=== PATIENT | female | born 2000 | race Caucasian/White ===

== ENCOUNTER 2019-04-13 11:34 | Emergency (ER) | payer SELFPAY ==
[~2019-04-13] VITALS: Ht 167.6 cm; Wt 61.7 kg
[2019-04-13 11:38] VITALS: BP 110/71
--- NOTE | 2019-04-13 11:49 | NUR ---
PATIENT AMBULATED TO BED 4.
--- NOTE | 2019-04-13 12:02 | NUR ---
18F BIB [employer] WITH C/O VAGINAL BLEEDING, INTERMITTENT CRAMPY LEFT LOWER ABDOMINAL PAIN X YESTERDAY. LMP 02/25/19. L0. ULTRASOUND AT [facility] X YESTERDAY AND PT HAD US : PREG 4 WEEKS. BLEEDING ALSO PRESENT YESTERDAY WHILE AT [facility] BUT WAS LIGHT. PT STATES IMAGING ALSO SHOWED STOOL. PT IS PASSING GAS, LBM YESTERDAY NORMAL CONSISTENCY. DENIES FEVER, N/V. MILD TENDERNESS TO PALPATION OF LLQ. NORMOACTIVE BS. LUNGS CTAB. RRR. NAD. MED HX: ASTHMA, ANEMIA
--- NOTE | 2019-04-13 12:37 | NUR ---
lab work walked over by Lyndsey LONGORIA
[2019-04-13 12:45] LABS: BASOPHILS % (AUTO) 0.5 % (0.0-2.0); EOSINOPHILS # (AUTO) 0.2 K/uL (0-0.4); EOSINOPHILS % (AUTO) 2.8 % (0.0-4.0); HEMATOCRIT 37.4 % (36-48); HEMOGLOBIN 12.2 g/dL (12.0-16.0); LYMPHOCYTES # (AUTO) 2.1 K/uL (2.5-16.5); MEAN CORPUSCULAR HEMOGLOBIN 29 pg (27-31); MEAN CORPUSCULAR HGB CONC 33 g/dL (33-37); MEAN CORPUSCULAR VOLUME 88.8 fL (80-94); MONOCYTES # (AUTO) 0.6 K/uL (0.8-1.0); MONOCYTES % (AUTO) 9.8 % (1.7-9.3); NEUTROPHILS # (AUTO) 3.1 K/uL (1.8-7.7); NEUTROPHILS % (AUTO) 51.9 % (42.2-75.2); PLATELET COUNT (AUTO) 208 K/uL (140-450); RED BLOOD CELL COUNT(AUTO) 4.22 MIL/uL (4.20-5.40); RED CELL DISTRIBUTION WIDTH 13.4 % (11.6-13.7)
[2019-04-13 13:00] LABS: APPEARANCE,URINE CLOUDY (CLEAR); BILIRUBIN,URINE NEGATIVE (NEGATIVE); BLOOD, URINE 3+ (NEGATIVE); COLOR,URINE YELLOW (YELLOW); LEUKOCYTE ESTERASE ,URINE NEGATIVE (NEGATIVE); NITRITE, URINE NEGATIVE (NEGATIVE); PH,URINE 7.5 (5.0-9.0); UGLUCOSE NEGATIVE (NEGATIVE)
[2019-04-13 13:11] LABS: RBC,URINE >100 /HPF (0-5); WBC,URINE 0-5 /HPF (0-5)
--- NOTE | 2019-04-13 13:31 | NUR ---
DR RUEDA AT BEDSIDE EVALUATING PT.
--- NOTE | 2019-04-13 14:05 | NUR ---
ADMINISTERED RHOGAM IM AT LEFT GLUTEUS KASSIE. LOT [id number] EXP 10/15/2020 Addendum: 04/13/19 at 1433 by MEGHNA RHOPHYLAC PATIENT COPY GIVEN TO PATIENT.
--- NOTE | 2019-04-13 14:25 | NUR ---
Patient discharged with v/s stable. Written and verbal after care instructions given and explained. Patient verbalized understanding. Ambulatory with steady gait. All questions addressed prior to discharge. Advised to follow up with PMD.
[2019-04-13 14:32] VITALS: BP 116/57
--- NOTE | 2019-04-13 14:47 | NUR ---
PATIENT CAME BACK TO GIVE US CASE #[id number] FROM [employer]. PT CONSENTS TO RELEASE HEALTH INFORMATION TO [employer] IF THEY CALL.
--- NOTE | 2019-04-13 16:30 | NUR ---
[facility] CALLED, DISCUSSED PATIENT'S CASE/CONDITION WITH [facility].
== END 2019-04-13 14:25 | disposition home or self-care (01) ==
LOC: MED 11:34
DX: O03.9 Complete or unspecified spontaneous abortion without complication (principal); J45.909 Unspecified asthma, uncomplicated
CPT/HCPCS: 36415; 81001; 81025; 84702; 85025; 86886; 86900; 86901; 99283; J2790